=== PATIENT | male | born 1950 | race Caucasian/White ===

== ENCOUNTER 2018-05-11 13:10 | Emergency (ER) | payer MEDICARE, SELFPAY ==
[2018-05-11 13:11] VITALS: BP 170/103; PULSE 76; RESP 18; TEMP 36.4; O2SAT 97; BMI 25.1
--- NOTE | 2018-05-11 13:40 | RAD_ITS ---
STUDY: X-RAY - THORACIC SPINE REASON FOR EXAM: Male, 68 years old. Pain following a fall. TECHNIQUE: 3 view(s) of the thoracic spine were obtained. COMPARISON: None. FINDINGS: Normal kyphosis of the thoracic spine. There is no substantial scoliosis. Normal thoracic vertebrae and endplates. There is mild disc space narrowing of the thoracic spine. Prior ORIF of the right clavicle. The soft tissue structures are unremarkable. RAD/Thoracic Spine 2 Views IMPRESSION: Mild degree of degenerative changes of the thoracic spine. Electronically Signed: Tahir Calvo MD at 14:21 EST , Service support ,
--- NOTE | 2018-05-11 13:40 | RAD_ITS ---
STUDY: X-RAY CHEST REASON FOR EXAM: Male, 68 years old. Right posterior pain following a fall. TECHNIQUE: PA and lateral views of the chest. COMPARISON: Comparison is made with prior study dated September 12, 2013. FINDINGS: Increased linear markings at the right lung base with blunting of the right costophrenic angle suggestive of a right basilar atelectasis. Blunting of the right costophrenic angle. Normal size heart. Normal mediastinum and jim. Normal visualized pulmonary arteries. There is atherosclerotic calcification of the aortic arch with tortuosity. Normal visualized thoracic spine. Prior ORIF of the right clavicle. Evidence of prior cholecystectomy. RAD/Chest PA and Lateral IMPRESSION: Mild increased linear markings at the right lung base suggestive right basilar atelectasis with blunted left costophrenic angle. Electronically Signed: Tahir Calvo MD at 14:20 EST , Service support ,
--- NOTE | 2018-05-11 15:24 | ED.VISSUMM ---
- ER Visit Summary Date of Service: 05/11/18 Chief Complaint: Back pain post fall History of Present Illness: The patient is a 68 M past Sean history of prostate cancer treated with radiation therapy degenerative disc disease and hypertension. No prior back surgery. Patient states on Monday he slipped and fell on the ice landing flat on his back. Denies hitting his head or having any head injury. He is on no blood thinners. Complaining of right parathoracic back pain. Denies any chest pain. Said it hurts more when he takes a deep breath. No abdominal pain. No other injuries. He denies any headache. No nausea or vomiting. Physical Examination: Older male no acute distress. Vital signs are stable afebrile. Sitting in a chair when he gets up to transfer the bed he moves carefully and slowly due to back discomfort. HEENT exam is unremarkable. Atraumatic. Pupils round reactive light. No signs of trauma to his face or scalp. C-spine nontender. Trachea midline. Normal range of motion. Lungs clear to auscultation bilaterally. Heart regular rhythm no murmur. Chest wall nontender. Abdomen is soft and nontender. Normal bowel sounds no peritoneal signs. Pelvic girdle intact. Extremities moving all 4. Neurovascular intact. Bilateral equal and symmetrical telephone lineworker strength. Dorsi plantar flexion intact. No deformities. Extremities are nontender. Moving all 4. Neurovascular intact with normal range of motion. Back is no cervical, thoracic or lumbar spine tenderness. He is right thoracic soft tissue tenderness. No ecchymosis or bruising. No subcu air. Trachea is no bruising. Neurologically is awake alert with no focal motor deficits. Test Results: Chest x-ray shows no acute abnormality except for linear atelectasis. Thoracic spine x-ray shows chronic degenerative changes but no acute process. No compression fracture. Both films are read by myself and radiologist. Emergency Department Course and Treatment: [place] for pain. Treatment Plan: Ice. Hot shower warm bath. Massage [place] for pain. Disposition: Discharge Impression: Acute fall on ice Parathoracic contusion and strain This note was generated with [employer] dictation software. It may contain incorrect words, spelling, and punctuation that were not noted in review of the chart prior to signing ED Disposition - Plan for ED Patient: Referrals: Shazia Cleveland MD [Primary Care Provider] -
[2018-05-11 15:26] VITALS: BP 156/92; PULSE 70; PULSE 76; RESP 18; O2SAT 95
[2018-05-11] MEDS: HYDROcodone Bitartrate/Apap 5/325 Tablet PO (15:28)
--- NOTE | 2018-05-11 15:32 | ED.DCSUM_ITS ---
- ER Visit Summary Date of Service: 05/11/18 Chief Complaint: Back pain post fall History of Present Illness: The patient is a 68 M past Sean history of prostate cancer treated with radiation therapy degenerative disc disease and hypertension. No prior back surgery. Patient states on Monday he slipped and fell on the ice landing flat on his back. Denies hitting his head or having any head injury. He is on no blood thinners. Complaining of right parathoracic back pain. Denies any chest pain. Said it hurts more when he takes a deep breath. No abdominal pain. No other injuries. He denies any headache. No nausea or vomiting. Physical Examination: Older male no acute distress. Vital signs are stable afebrile. Sitting in a chair when he gets up to transfer the bed he moves carefully and slowly due to back discomfort. HEENT exam is unremarkable. Atraumatic. Pupils round reactive light. No signs of trauma to his face or scalp. C-spine nontender. Trachea midline. Normal range of motion. Lungs clear to auscultation bilaterally. Heart regular rhythm no murmur. Chest wall nontender. Abdomen is soft and nontender. Normal bowel sounds no peritoneal signs. Pelvic girdle intact. Extremities moving all 4. Neurovascular intact. Bilateral equal and symmetrical knowledge analyst strength. Dorsi plantar flexion intact. No deformities. Extremities are nontender. Moving all 4. Neurovascular intact with normal range of motion. Back is no cervical, thoracic or lumbar spine tenderness. He is right thoracic soft tissue tenderness. No ecchymosis or bruising. No subcu air. Trachea is no bruising. Neurologically is awake alert with no focal motor deficits. Test Results: Chest x-ray shows no acute abnormality except for linear atelectasis. Thoracic spine x-ray shows chronic degenerative changes but no acute process. No compression fracture. Both films are read by myself and radiologist. Emergency Department Course and Treatment: [place] for pain. Treatment Plan: Ice. Hot shower warm bath. Massage [place] for pain. Disposition: Discharge Impression: Acute fall on ice Parathoracic contusion and strain This note was generated with [employer] dictation software. It may contain incorrect words, spelling, and punctuation that were not noted in review of the chart prior to signing ED Disposition - Plan for ED Patient: Referrals: Shazia Cleveland MD [Primary Care Provider] -
--- NOTE | 2018-05-11 15:32 | ED.DEP ---
ED Disposition - Plan for ED Patient: Disposition: Home or Assisted Living Instructions: ED Contusion Back Prescriptions: Hydrocodone/Acetaminophen [[place] 5-325 Tablet] 1 ea PO Q4H PRN PRN 5 Days #20 tab PRN Reason: Pain Referrals: Shazia Cleveland MD [Primary Care Provider] - 1 Week if not improving Additional Instructions: Ice to back to decrease swelling and pain. [place] for pain. 1-2 every 4-6 hours as needed for pain. Plenty of fluids and fiber to prevent constipation. Stool softener as needed. Do not drive or drink any alcohol while using the pain medication. Hot shower and warm bath to relax the muscles and massage. No broken bones or ribs seen on your x-ray today. Follow-up if not improving.
--- NOTE | 2018-05-11 15:36 | DCINST.ED_ITS ---
ED Disposition - Plan for ED Patient: Disposition: Home or Assisted Living Instructions: ED Contusion Back Prescriptions: Hydrocodone/Acetaminophen [[place] 5-325 Tablet] 1 ea PO Q4H PRN PRN 5 Days #20 tab PRN Reason: Pain Referrals: Shazia Cleveland MD [Primary Care Provider] - 1 Week if not improving Additional Instructions: Ice to back to decrease swelling and pain. [place] for pain. 1-2 every 4-6 hours as needed for pain. Plenty of fluids and fiber to prevent constipation. Stool softener as needed. Do not drive or drink any alcohol while using the pain medication. Hot shower and warm bath to relax the muscles and massage. No broken bones or ribs seen on your x-ray today. Follow-up if not improving.
== END 2018-05-11 15:51 | disposition home or self-care (01) ==
PROVIDERS: Emergency Provider Emergency Medicine; Family Provider Internal Medicine; PCP Internal Medicine
DX: S29.012A Strain of muscle and tendon of back wall of thorax, initial encounter (principal); S20.229A Contusion of unspecified back wall of thorax, initial encounter; J98.11 Atelectasis; W00.0XXA Fall on same level due to ice and snow, initial encounter; Y93.9 Activity, unspecified; Y92.9 Unspecified place or not applicable; I10 Essential (primary) hypertension; E78.00 Pure hypercholesterolemia, unspecified; Z85.46 Personal history of malignant neoplasm of prostate; Z92.3 Personal history of irradiation; Z90.49 Acquired absence of other specified parts of digestive tract; Z79.899 Other long term (current) drug therapy
CPT/HCPCS: 71046; 72070; 99283